=== PATIENT | male | born 1980 | race Two or more races ===

== ENCOUNTER 2023-10-18 10:09 | Emergency (ER) | payer OTHER ==
[~2023-10-18] VITALS: Ht 327.7 cm; Wt 73.5 kg
[2023-10-18] MEDS ORDERED: LIDOCAINE 1% INJ 50 ML MDV IJ ONE (10:29)
[2023-10-18] MEDS: TDAP [DIPH/PERTUSSIS/TET] 0.5 ML VIAL IM ONE (10:30)
[2023-10-18] MEDS ORDERED: TDAP [DIPH/PERTUSSIS/TET] 0.5 ML VIAL IM ONE (10:51)
[2023-10-18] MEDS: LIDOCAINE 1% INJ 50 ML MDV IJ ONE (11:01)
[2023-10-18 11:54] VITALS: BP 118/77; TEMP 97.4; O2SAT 96
[2023-10-18] MEDS ORDERED: ACETAMINOPHEN ES 500 MG TABLET ONE (11:56)
[2023-10-18] MEDS: ACETAMINOPHEN 325 MG TABLET PO ONE (12:03)
== END 2023-10-18 11:54 | disposition home or self-care (01) ==
LOC: ER 10:09
DX: S61.211A Laceration without foreign body of left index finger without damage to nail, initial encounter (principal); S61.213A Laceration without foreign body of left middle finger without damage to nail, initial encounter; W27.0XXA Contact with workbench tool, initial encounter; Y93.89 Activity, other specified; Y92.89 Other specified places as the place of occurrence of the external cause; Y99.0 Civilian activity done for income or pay
CPT/HCPCS: 12001; 90471; 90715; 99283; A6403; J3490

== ENCOUNTER 2023-10-20 13:09 | Emergency (ER) | payer OTHER ==
[~2023-10-20] VITALS: Ht 175.3 cm; Wt 82.6 kg
[2023-10-20 13:17] VITALS: BP 130/72; TEMP 98
[2023-10-20] MEDS ORDERED: BENZOIN COMPOUND TINCT 60 ML BOTTLE ONE (13:33)
[2023-10-20] MEDS ORDERED: CEPH-570 PO (14:26)
[2023-10-20 14:29] VITALS: O2SAT 99
== END 2023-10-20 14:29 | disposition home or self-care (01) ==
LOC: ER 13:17
DX: S61.211D Laceration without foreign body of left index finger without damage to nail, subsequent encounter (principal); S61.213D Laceration without foreign body of left middle finger without damage to nail, subsequent encounter; Z48.00 Encounter for change or removal of nonsurgical wound dressing; Z60.2 Problems related to living alone; X58.XXXD Exposure to other specified factors, subsequent encounter

== ENCOUNTER 2023-10-29 12:49 | Emergency (ER) | payer OTHER ==
[~2023-10-29] VITALS: Ht 175.3 cm; Wt 73.0 kg
[~2023-10-29 12:49] MED LIST: CEPH-570 PO
[2023-10-29 12:56] VITALS: BP 134/67; TEMP 98.5; O2SAT 100
== END 2023-10-29 13:49 | disposition home or self-care (01) ==
LOC: ER 13:16
DX: S61.211D Laceration without foreign body of left index finger without damage to nail, subsequent encounter (principal); S61.213D Laceration without foreign body of left middle finger without damage to nail, subsequent encounter; Z79.899 Other long term (current) drug therapy; Z60.2 Problems related to living alone; X58.XXXD Exposure to other specified factors, subsequent encounter